=== PATIENT | female | born 1945 | race Caucasian/White ===

== ENCOUNTER → 2016-12-05 | Outpatient (CLI) | payer MEDICARE, OTHER | END | disposition home or self-care (01) | LOC: GMAM 15:00 | PROVIDERS: ATTEND Family Medicine | DX: R80.9 Proteinuria, unspecified (principal) ==

== ENCOUNTER → 2017-04-07 | Outpatient (CLI) | payer MEDICARE, OTHER ==
--- NOTE | 2017-04-08 10:32 | MAM ---
History: Well woman exam. Date of exam: 04/07/2017 Services provided: Bilateral full field digital screening mammography. CAD, the images were reviewed with R2 computer aided detection. FINDINGS: Glandular tissue is scattered glandular contour. Comparison with 2014 exam. No dominant mass, architectural distortion or clustered microcalcification. IMPRESSION: Benign exam Recommendation: Routine annual mammography BIRAD CATEGORY: 2 BENIGN Electronically signed by: Daysi Gordon MD 04/08/2017 10:31 AM CDT Workstation: [id number]
== END | disposition home or self-care (01) ==
LOC: MAMMO 11:30
PROVIDERS: ATTEND Family Medicine
DX: Z12.31 Encounter for screening mammogram for malignant neoplasm of breast (principal)

== ENCOUNTER → 2018-01-06 | Outpatient (CLI) | payer MEDICARE, OTHER | LOC: GMAM 17:18 | PROVIDERS: ATTEND Family Medicine | DX: R80.9 Proteinuria, unspecified (principal) ==

== ENCOUNTER → 2018-04-22 | Outpatient (CLI) | payer MEDICARE, OTHER ==
--- NOTE | 2018-04-23 11:51 | MAM ---
EXAM DESCRIPTION: 3D Screening BILATERAL : Digital Mammography. CLINICAL HISTORY: 72 years Female SCREENING . No complaints. Remote family history of breast cancer. Childbirth. Hysterectomy. HRT more than 5 years ago.. COMPARISON: 2-D digital screening bilateral mammography 04/07/2017. Report from prior examination also reviewed. TECHNIQUE: Bilateral CC and MLO projection full-field images, 3-D tomosynthesis digital mammographic technique. CAD not utilized. FINDINGS: The breast parenchymal density pattern is: Scattered areas of fibroglandular density. No skin thickening or nipple retraction. Minimum bilateral vascular calcifications. No new focal, stellate mass or density, focal asymmetry , and no suspicious microcalcifications bilaterally. Stable mammograms compared to prior study, taking into account differences in mammographic technique. IMPRESSION: BI-RADS CATEGORY: 2 - BENIGN FINDINGS. FOLLOW UP: Routine digital bilateral screening, one year interval from April 2018. Written communication explaining the IMPRESSION and follow-up, will be mailed to the patient and referring health care provider. According to the [employer], yearly mammograms are recommended starting at age 40 and continuing as long as a woman is in good health. Any breast change noted on a breast self-exam should be reported promptly to the patient's healthcare provider. Breast MRI is recommended for women with an approximately 20-25% or greater lifetime risk of breast cancer, including women with a strong family history of breast or ovarian cancer and women who have been treated for Hodgkin's disease. A negative mammographic report should not delay tissue diagnosis in patients with significant clinical history or physical findings. Extremely dense breast tissue limits the sensitivity of digital mammography. Electronically signed by: Kirk Warner MD 04/23/2018 11:49 AM CDT
== END ==
LOC: MAMMO 11:30
PROVIDERS: ATTEND Family Medicine
DX: Z12.31 Encounter for screening mammogram for malignant neoplasm of breast (principal)

== ENCOUNTER → 2019-04-09 | Outpatient (CLI) | payer MEDICARE, OTHER | LOC: GMAM 13:48 | PROVIDERS: ATTEND Family Medicine | DX: R53.83 Other fatigue (principal); I10 Essential (primary) hypertension; E11.9 Type 2 diabetes mellitus without complications; E78.5 Hyperlipidemia, unspecified ==

== ENCOUNTER → 2019-04-12 | Outpatient (CLI) | payer MEDICARE, OTHER | LOC: GMAM 17:36 | PROVIDERS: ATTEND Family Medicine | DX: M25.50 Pain in unspecified joint (principal) ==

== ENCOUNTER → 2019-04-27 | Outpatient (CLI) | payer MEDICARE, OTHER ==
--- NOTE | 2019-04-28 20:28 | MAM ---
EXAM DESCRIPTION: 3D Screening BILATERAL : Digital Mammography. CLINICAL HISTORY: 73 years Female Annual Screening . No complaints. No personal or fascial history of breast cancer. Remote family history of ovarian cancer. Childbirth. Postmenopausal. Taking HRT 5 or more years ago. Benign right breast biopsy. Lifetime risk of developing breast cancer (Tyrer-Cuzick model)(%): 4.4. COMPARISON: Bilateral screening digital breast tomosynthesis 04/22/2018. TECHNIQUE: Bilateral CC and MLO projection full-field images, digital tomosynthesis mammographic technique. Bilateral digital 2-D full-field MLO images. CAD not available for tomosynthesis or 2-D images. FINDINGS: The breast parenchymal density pattern is: Scattered areas of fibroglandular density. No skin thickening or nipple retraction. No new focal, stellate mass or density, focal asymmetry , and no suspicious microcalcifications bilaterally. Stable mammograms compared to prior study. IMPRESSION: BI-RADS CATEGORY: 1 - NEGATIVE FOLLOW UP: Routine digital bilateral screening, one year interval from April 2019. Written communication explaining the findings and follow-up, will be mailed to the patient and referring health care provider. According to the [employer], yearly mammograms are recommended starting at age 40 and continuing as long as a woman is in good health. Any breast change noted on a breast self-exam should be reported promptly to the patient's healthcare provider. Breast MRI is recommended for women with an approximately 20-25% or greater lifetime risk of breast cancer, including women with a strong family history of breast or ovarian cancer and women who have been treated for Hodgkin's disease. A negative mammographic report should not delay tissue diagnosis in patients with significant clinical history or physical findings. Extremely dense breast tissue limits the sensitivity of digital mammography. Electronically signed by: Kirk Warner MD 04/28/2019 8:26 PM CDT
== END ==
LOC: MAMMO 13:52
PROVIDERS: ATTEND Family Medicine
DX: Z12.31 Encounter for screening mammogram for malignant neoplasm of breast (principal)

== ENCOUNTER 2019-08-18 10:56 | Emergency (ER) | payer MEDICARE, OTHER ==
--- NOTE | 2019-08-18 11:16 | ED.PDOC ---
History of Present Illness - General Time Seen by Provider: 08/18/19 11:09 Information Source: patient Exam Limitations: no limitations - History of Present Illness Initial Comments: Abdominal Pain Pt presents for 1 week h/o upper abdominal pain and nausea, vomiting, diarrhea. States the pain comes on after she eats. Has vomited x 3 in past week and had loose stools. Denies fever, chills, CP, SOB. Has been seen by PCP for this and told to come to ED today for US gallbladder. PSH of hysterectomy. Abdominal Pain Onset Location: RUQ, epigastric Pain Radiation: no radiation Quality: moderate Timing/Duration: 1 week, intermittent Improving Factors: nothing Worsening Factors: eating Associated Symptoms: diarrhea, nausea/vomiting Review of Systems - Review of Systems Constitutional: Denies: chills, fever, weakness EENTM: Denies: nose congestion, throat pain Respiratory: Denies: cough, short of breath Cardiology: Denies: chest pain, palpitations, syncope Gastrointestinal/Abdominal: States: see HPI, abdominal pain Past Medical History (General) - Patient Medical History Hx Seizures: No Hx Stroke: No Hx Asthma: No Hx of COPD: No Hx Cardiac Disorders: Yes Hx Congestive Heart Failure: No Hx Pacemaker: No Hx Hypertension: Yes Hx Diabetes: Yes Hx MRSA: No - Social History Hx Alcohol Use: Yes - One glass wine HS. Hx Substance Use: No Hx Physical Abuse: No Hx Emotional Abuse: No Family Medical History - Family History Father Family History: Unknown Name: Eddi Kaur Living Status: Age at (years of age): 69 Hx Family Asthma: No Hx Family Congestive Heart Failure: No Hx Family Hypertension: Yes - Pt, sister and brother. Hx Family Stroke: No Hx Cardiac Disease: Yes - Father and brother. Hx Family Diabetes: Yes - Pt, father and brother. Hx Family Cancer: Yes - Mother- melenoma Physical Exam - Physical Exam General Appearance: Alert, Comfortable, No apparent distress Neck: non-tender, full range of motion, supple Respiratory: chest non-tender, lungs clear, normal breath sounds, no respiratory distress Cardiovascular/Chest: regular rate, rhythm, no edema, no murmur Gastrointestinal/Abdominal: non tender, soft, no pulsatile mass Back Exam: normal inspection, no CVA tenderness Extremity: normal range of motion, non-tender, normal inspection Neurologic: no motor/sensory deficits, alert, normal mood/affect Skin Exam: normal color, warm/dry Progress - Progress Progress: 08/18/19 13:07 Pt presents with 1 week h/o epigastric pain, NVD after eating. Abdomen is soft and NTTP. No sign of acute abdomen at this time. Labs and imaging reassuring. Pt will continue Prilosec mary and f/u with pcp in 1-2 days for recheck. srp given - Results/Orders Results/Orders: 08/18/19 11:19 Gall Bladder [US] Stat Laboratory Results - last 24 hr 08/18/19 08/18/19 08/18/19 11: 11:19 12:30 WBC 2.4 L* RBC 4.19 L Hgb 13.0 Hct 39.0 MCV 93.2 MCH 31.0 MCHC 33.2 RDW 12.8 Plt Count 215 MPV 7.6 Absolute Neuts (auto) Not Reportable Absolute Lymphs (auto) Not Reportable Absolute Monos (auto) Not Reportable Absolute Eos (auto) Not Reportable Neutrophils % Not Reportable Neutrophils % (Manual) 47.0 Lymphocytes % Not Reportable Lymphocytes % (Manual) 29.0 Monocytes % Not Reportable Monocytes % (Manual) 12.0 Eosinophils % Not Reportable Basophils % Not Reportable Band Neutrophils 5.0 H Eosinophils 7.0 Toxic Granulation 1+ Platelet Estimate Normal Normal RBC Morphology Normal rbc morph Sodium 137 Potassium 3.8 Chloride 101 Carbon Dioxide 23 Anion Gap 16.8 BUN 13 Creatinine 1.06 BUN/Creatinine Ratio 12.3 Random Glucose 144 H Serum Osmolality 276.5 Calcium 9.7 Total Bilirubin 0.4 AST 35 ALT 23 Alkaline Phosphatase 37 L Serum Total Protein 8.2 Albumin 4.5 Globulin 3.7 H Albumin/Globulin Ratio 1.2 Lipase 42 Urine Color Yellow Urine Appearance Clear Urine pH 7.0 Ur Specific [place] 1.025 Urine Protein 30 Urine Glucose (UA) Negative Urine Ketones Negative Urine Blood Negative Urine Nitrite Negative Urine Bilirubin Small H Urine Urobilinogen 0.2 Ur Leukocyte Esterase Negative Urine RBC 0-1 Urine WBC 3-5 HUS Ur Epithelial Cells 3-5 Amorphous Sediment Trace Urine Bacteria Rare Hyaline Casts 3-5 Urine Mucus Moderate RUQ US performed and shows fatty liver. No evidence for cholelithiasis or biliary duct dilitation Departure - Departure Clinical Impression: Abdominal pain Qualifiers: Abdominal location: upper abdomen, unspecified Qualified Code(s): R10.10 - Upper abdominal pain, unspecified Vomiting Qualifiers: Vomiting type: unspecified Vomiting Intractability: non-intractable Nausea presence: with nausea Qualified Code(s): R11.2 - Nausea with vomiting, unspecified Time of Disposition: 13:09 Disposition: Discharge to Home or Self Care Condition: Good Departure Forms: ED Discharge - Pt. Copy Instructions: DI for Abdominal Pain-Adult Diet: bland diet Referrals: Gibran Acosta MD [Primary Care Provider] - 1-2 Weeks Prescriptions: Ondansetron [Ondansetron Odt] 4 mg PO Q6HR PRN #15 tab PRN Reason: Nausea Home Medications: Ambulatory Orders Benazepril HCl [Lotensin] 40 mg PO DAILY 06/18/13 Omeprazole [Prilosec Cap] 20 mg PO DAILY 06/18/13 Simvastatin 40 mg PO BEDTIME 06/18/13 Aspirin [Eql Aspirin Low Dose] 81 mg PO DAILY 11/28/15 Liraglutide [Victoza] 18 mg SC DAILY 11/28/15 Calcium Carbonate-Vitamin D [Calcium-Carb 600 + D 600-125 mg-Unit] 1 tab PO BEDTIME 11/29/15 Citalopram Hydrobromide 40 mg PO DAILY 11/29/15 Estrogens, Conjugated Vaginal [Premarin] 0.625 mg VA BEDTIME 11/29/15 Multiple Vitamins W/ Minerals [Centrum Adults] 1 tab PO DAILY 11/29/15 Nitroglycerin 0.4 mg Tab [Nitrostat] 0.4 mg SL Q5MIN PRN 11/29/15 Nitroglycerin Patch 0.4 mg/Hr [Nitro-Dur PATCH] 0.4 mg TD .ON 12HRS-OFF 12 HRS #30 patch 11/29/15 amLODIPine BESYLATE [Norvasc] 5 mg PO BEDTIME #0 tab 11/29/15 Ondansetron [Ondansetron Odt] 4 mg PO Q6HR PRN #15 tab 08/18/19
[2019-08-18] MEDS ORDERED: ONDANSETRON INJ 4 MG/2 ML VIAL IV ONE (11:19)
[2019-08-18 13:27] VITALS: BP 138/74; TEMP 98; O2SAT 95
--- NOTE | 2019-08-24 10:09 | US ---
EXAM DESCRIPTION: Abdomen,Limited: ULTRASOUND. CLINICAL HISTORY: RUQ pain COMPARISON: None. TECHNIQUE: Transabdominal scanning: laureano-scale mode. Doppler mode. FINDINGS: Gallbladder: normal size, shape, echogenicity; no intraluminal stones or sludge. No fluid around the gallbladder. No wall thickening. 2.1 mm. Non-tender with transducer pressure. Common bile duct: caliber 4.6 mm within normal limits. Liver: Heterogeneously increased echogenicity; contour liver capsule smooth where seen. No fluid around the liver. Intrahepatic biliary ducts normal caliber. Portal vein flow direction not evaluated. Long axis right lobe 13.1 cm. Pancreas: normal size and echogenicity. Duct not seen. Proximal abdominal aorta: diameter. IVC: visualized and normal caliber. Right kidney: long axis measures 9.8 cm. Increased Echogenicity. Minimal reduction in cortical thickness. No echogenic stones or hydronephrosis. IMPRESSION: 1. Steatosis of the liver with normal size. Normal caliber of the ducts. Smooth capsule with no ascites. 2. Gallbladder, common bile duct, pancreas unremarkable. Normal caliber of the proximal abdominal aorta and IVC. Age-related changes of the right kidney. Report called to Dr. Mcmahon in the Emergency Medicine Department at approximately 1215 hours today. Electronically signed by: Kirk Warner MD 08/18/2019 8:06 PM DIGITIZER
== END 2019-08-18 13:25 | disposition home or self-care (01) ==
LOC: ER 10:56
DX: R10.10 Upper abdominal pain, unspecified (principal); R11.2 Nausea with vomiting, unspecified; R19.7 Diarrhea, unspecified; I51.9 Heart disease, unspecified; I10 Essential (primary) hypertension; E11.9 Type 2 diabetes mellitus without complications; Z79.82 Long term (current) use of aspirin; Z79.899 Other long term (current) drug therapy
CPT/HCPCS: 36415; 76705; 80053; 81001; 83690; 85025; J2405

== ENCOUNTER → 2020-07-12 | Outpatient (CLI) | payer MEDICARE, OTHER ==
--- NOTE | 2020-07-18 16:33 | MAM ---
EXAM DESCRIPTION: 3D Screening BILATERAL : Digital Mammography. CLINICAL HISTORY: 74 years Female SCREENING history sheet. Lifetime risk of developing breast cancer (Tyrer-Cuzick model)(%): Not calculated COMPARISON: prior. No prior reports available. TECHNIQUE: Bilateral CC and MLO projection full-field images, digital tomosynthesis mammographic technique. Bilateral digital 2-D full-field MLO images. CAD available for 2-D images. FINDINGS: The breast parenchymal density pattern is: Scattered areas of fibroglandular density. No skin thickening or nipple retraction. Solitary parenchymal calcifications. Bilateral axillary nodes. Vascular calcifications. Enlargement of the small nodular density medial anterior left breast, 4.7 cm from the nipple at 8:00-8:30. Possibly a lymph node. Not associated with microcalcifications. No new focal, stellate mass or density, focal asymmetry , and no suspicious microcalcifications right breast. IMPRESSION: BI-RADS CATEGORY: 0 - INCOMPLETE- Need additional imaging evaluation. RECOMMENDATIONS: FOLLOW-UP: Recall for additional imaging: Directed left breast ultrasound to the region of interest. Optional diagnostic digital breast tomosynthesis left breast if the ultrasound findings are equivocal.. Written communication concerning the IMPRESSION and Follow-up, will be mailed to the patient and referring health care provider. Electronically signed by: Kirk Warner MD 07/18/2020 4:31 PM CDT
== END ==
LOC: MAMMO 14:56
PROVIDERS: ATTEND Family Medicine
DX: Z12.31 Encounter for screening mammogram for malignant neoplasm of breast (principal)

== ENCOUNTER → 2020-08-07 | Outpatient (CLI) | payer MEDICARE, OTHER ==
--- NOTE | 2020-08-08 19:26 | US ---
EXAM DESCRIPTION: Breast,Left: Ultrasound. CLINICAL HISTORY: 74 yearsFemaleABNORMAL MAMMOGRAM enlarging mass density left breast. COMPARISON: Bilateral screening digital breast tomosynthesis July 12, 2020. TECHNIQUE: Transcutaneous scanning of the left breast utilizing laureano-scale and Doppler modes. Scanning performed by the senior portfolio analyst ; observation by Dr. Warner. FINDINGS: Scanning left breast anterior middle third medial to the posterior nipple line. Mostly fatty tissues with minimal fibroglandular tissues. Circumscribed hypoechoic and echogenic object or parallel orientation and nonvascular with overall dimensions of 6.4 x 3.8 mm. In the components measuring 3.7 and 2.5 mm. Differential includes lymph node or cystic cluster. IMPRESSION: Benign exam. BIRAD CATEGORY: 2 BENIGN FINDINGS. RECOMMENDATIONS: FOLLOW UP: Return to routine digital bilateral mammographic screening, one year interval from July 2020. Written communication explaining the IMPRESSION and follow-up, will be mailed to the patient and referring health care provider. According to the [employer], yearly mammograms are recommended starting at age 40 and continuing as long as a woman is in good health. Any breast change noted on a breast self-exam should be reported promptly to the patient's healthcare provider. Breast MRI is recommended for women with an approximately 20-25% or greater lifetime risk of breast cancer, including women with a strong family history of breast or ovarian cancer and women who have been treated for Hodgkin's disease. A negative mammographic report should not delay tissue diagnosis in patients with significant clinical history or physical findings. Extremely dense breast tissue limits the sensitivity of digital mammography. Electronically signed by: Kirk Warner MD 08/08/2020 7:24 PM CDT
== END ==
LOC: MAMMO 15:00
PROVIDERS: ATTEND Family Medicine
DX: R92.8 Other abnormal and inconclusive findings on diagnostic imaging of breast (principal); D64.9 Anemia, unspecified; E11.9 Type 2 diabetes mellitus without complications; I10 Essential (primary) hypertension; E78.5 Hyperlipidemia, unspecified

== ENCOUNTER → 2020-11-09 | Outpatient (CLI) | payer MEDICARE, OTHER | LOC: LAB.O 11:01 | PROVIDERS: ATTEND Family Medicine | DX: B82.9 Intestinal parasitism, unspecified (principal) ==